=== PATIENT | male | born 1990 | race Caucasian/White ===

== ENCOUNTER → 2020-10-23 | Day surgery (SDC) | payer OTHER ==
[~2020-10-23] MED LIST: LOPRESSOR50 MG PO; PROPAFENONE HC150 MG PO; VITAMIN D3125 MCG PO; ZOLOFT25 MG PO
== END | disposition home or self-care (01) ==
LOC: OR 07:25
DX: K21.00 Gastro-esophageal reflux disease with esophagitis, without bleeding (principal); R10.13 Epigastric pain; I10 Essential (primary) hypertension; I48.91 Unspecified atrial fibrillation; E66.01 Morbid (severe) obesity due to excess calories; F32.9 Major depressive disorder, single episode, unspecified; Z68.38 Body mass index [BMI] 38.0-38.9, adult; Z88.0 Allergy status to penicillin; Z88.2 Allergy status to sulfonamides
CPT/HCPCS: J2704; J7040